=== PATIENT | female | born 1965 | race Caucasian/White ===

== ENCOUNTER 2023-10-24 19:01 | Outpatient (RCR) | payer OTHER, SELFPAY | END 2023-10-24 23:59 | disposition home or self-care (01) | LOC: RPT 19:01 | PROVIDERS: ATTENDING PHYSICIAN Podiatrist Foot & Ankle Surgery; FAMILY PHYSICIAN Family Medicine | DX: M25.571 Pain in right ankle and joints of right foot (principal); M25.572 Pain in left ankle and joints of left foot; M76.62 Achilles tendinitis, left leg | CPT/HCPCS: 97110; 97112; 97140; 97161 ==

== ENCOUNTER 2023-11-28 18:06 | Outpatient (RCR) | payer OTHER, SELFPAY | END 2023-11-28 23:59 | disposition home or self-care (01) | LOC: RPT 18:06 | PROVIDERS: ATTENDING PHYSICIAN Podiatrist Foot & Ankle Surgery; FAMILY PHYSICIAN Family Medicine | DX: M25.571 Pain in right ankle and joints of right foot (principal); M25.572 Pain in left ankle and joints of left foot; Z73.6 Limitation of activities due to disability; M72.2 Plantar fascial fibromatosis; M76.62 Achilles tendinitis, left leg | CPT/HCPCS: 97110; 97140 ==

== ENCOUNTER 2023-12-28 16:01 | Outpatient (RCR) | payer OTHER, SELFPAY | END 2023-12-28 23:59 | disposition home or self-care (01) | LOC: RPT 16:01 | PROVIDERS: ATTENDING PHYSICIAN Podiatrist Foot & Ankle Surgery; FAMILY PHYSICIAN Family Medicine | DX: M25.571 Pain in right ankle and joints of right foot (principal); M25.572 Pain in left ankle and joints of left foot; M76.62 Achilles tendinitis, left leg; Z73.6 Limitation of activities due to disability; M72.2 Plantar fascial fibromatosis | CPT/HCPCS: 97110; 97140; 97530 ==

== ENCOUNTER 2024-01-25 15:48 | Outpatient (RCR) | payer OTHER, SELFPAY | END 2024-01-25 23:59 | disposition home or self-care (01) | LOC: RPT 15:48 | PROVIDERS: ATTENDING PHYSICIAN Podiatrist Foot & Ankle Surgery; FAMILY PHYSICIAN Family Medicine | DX: M25.571 Pain in right ankle and joints of right foot (principal); M25.572 Pain in left ankle and joints of left foot; M76.62 Achilles tendinitis, left leg; Z73.6 Limitation of activities due to disability | CPT/HCPCS: 97110; 97140; 97530 ==

== ENCOUNTER → 2024-04-05 13:32 | Outpatient (REF) | payer OTHER, SELFPAY | LOC: WDC 13:32 | PROVIDERS: ATTENDING PHYSICIAN Nurse Practitioner Adult Health; FAMILY PHYSICIAN Family Medicine | DX: Z12.31 Encounter for screening mammogram for malignant neoplasm of breast (principal) | CPT/HCPCS: 77063; 77067 ==